=== PATIENT | female | born 1945 | race Caucasian/White ===

== ENCOUNTER 2016-06-14 15:45 | Emergency (ER) ==
[2016-06-14 17:25] LABS: MANUAL DIFF NEEDED? NO
--- NOTE | 2016-06-14 17:30 | ED EKG INTERP ---
EKG Interpretation - EKG Time of EKG reading by physician:: 16:19 EKG Read and Signed by:: Lance Cat EKG Interpretation (*Must complete 3 of following elements*): Normal Rate: 94 Rhythm: NSR Attestation - Scribe Verification/Attestation Scribe:: Maddison Lincoln Acting as Scribe for:: Lance Cat Scribe documention review:: This chart was documented by a scribe and accurately reflects the service the provider performed and the decisions made by the provider.
[2016-06-14 17:36] LABS: BASO% 0.3 % (0.0-0.8); EOS# 0.06 X1000 (0.0-0.7); EOS% 0.3 % (0.0-10.0); HEMATOCRIT 43.4 % (37.0-47.0); HEMOGLOBIN 14.2 g/dL (12.0-16.0); IMM GRAN# 0.12 X1000 (0.0-0.04); IMM GRAN% 0.7 % (0.0-0.5); LYMPH# 1.91 X1000 (1.2-3.4); LYMPH% 10.9 % (20.5-51.1); MCH 30.6 PG (27-31); MCHC 32.7 g/dL (33-37); MCV 93.5 FL (81-99); MONO# 0.69 X1000 (0.11-0.59); MONO% 3.9 % (1.7-9.3); MPV 11.3 FL (7.4-10.4); NEUT% 83.9 % (42.2-75.2); PLT 360 X1000 (130-400); RBC 4.64 XMIL (4.2-5.4)
[2016-06-14 17:44] LABS: INR 0.98; PTT 21.5 Seconds (22.0-36.0)
[2016-06-14 17:59] LABS: AGAP 22; ALBUMIN 4.3 g/dL (3.5-5.0); ALKALINE PHOSPHATASE 71 U/L (32-104); BUN 19 mg/dL (8-22); CALCIUM 10.2 mg/dL (8.8-10.2); CHLORIDE 97 mmol/L (98-107); CK PROFILE 171 U/L (24-173); COSMO 281; GOT 17 U/L (10-30); GPT 18 U/L (10-36); MAGNESIUM 1.9 mg/dL (1.5-2.7); POTASSIUM 2.9 mmol/L (3.5-5.1); SODIUM 140 mmol/L (136-145); TCO2 21 mmol/L (25-35); TOTAL BILIRUBIN 0.25 mg/dL (0.20-1.00); TOTAL PROTEIN 7.9 g/dL (6.3-8.3)
--- NOTE | 2016-06-14 18:09 | PROVIDER DOCUMENTATION ---
HPI-Respiratory General - General Chief Complaint: Shortness of Breath Stated Complaint: UPPER RESPIRATORY ISSUES/FLANK PAIN Time Seen by Provider: 06/14/16 18:04 Source: patient Allergies/Adverse Reactions: Patient Allergies Allergy/AdvReac Type Severity Reaction Status Date / Time clindamycin HCl * Allergy Intermediate HIVES Verified 06/14/16 20:26 [From Cleocin] clindamycin palmitate HCl * Allergy Intermediate HIVES Verified 06/14/16 20:26 [From Cleocin] clindamycin phosphate * Allergy Intermediate HIVES Verified 06/14/16 20:26 [From Cleocin] Penicillins Allergy Intermediate RASH Verified 06/14/16 20:26 esomeprazole magnesium * AdvReac Mild HEADACHE Verified 06/14/16 20:26 [From Nexium] Home Medications: Home Medication List Medication Instructions Recorded Confirmed Last Taken Type Aspirin [Aspirin EC] 325 mg PO DAILY 01/22/12 06/14/16 06/13/16 History Calcium Carbonate [Caltrate 600] 600 mg PO DAILY 01/22/12 06/14/16 06/13/16 History Duloxetine [Cymbalta] 60 mg PO QHS 01/22/12 06/14/16 06/13/16 History Losartan Potassium [Cozaar] 100 mg PO DAILY 01/22/12 06/14/16 06/13/16 History Verapamil HCl [Verapamil ER] 240 mg PO DAILY 01/22/12 06/14/16 06/13/16 History Multivitamin [Multi-Vitamin Daily] 1 each PO DAILY 11/18/12 06/14/16 06/13/16 History Montelukast [Singulair] 10 mg PO HS 12/19/12 06/14/16 06/13/16 History Alprazolam [Xanax] 0.5 mg PO BID PRN PRN #10 tablet 11/01/14 06/14/16 Unknown Rx Pregabalin [Lyrica] 150 mg PO QHS 05/20/15 06/14/16 06/13/16 History Ondansetron [Zofran Odt] 4 mg PO 4XDAY PRN PRN #20 05/21/15 06/14/16 Unknown Rx tab.rapdis Tramadol [Ultram] 50 mg PO Q6H PRN PRN #14 tablet 05/21/15 06/14/16 06/13/16 Rx Hydrocodone/Acetaminophen [[place] 1 each PO Q4-6H PRN PRN #20 tablet 10/09/1502/2006/13/16 Rx 7.5-325 Tablet] Ondansetron [Zofran Odt] 8 mg PO Q8H PRN #20 tab.rapdis 10/09/15 06/14/16 Unknown Rx Methylprednisolone [Medrol Dosepak] 4 mg PO DIRECTED #1 package 03/31/1602/2006/14/16 Rx Albuterol Sulfate [Proair Hfa] 8.5 gm IH 4XDAY 06/14/16 06/14/16 06/14/16 History Azithromycin [Zithromax Z-Adrian] 250 mg PO DIRECTED 06/14/16 06/14/16 06/13/16 History Levofloxacin [Levaquin] 750 mg PO DAILY #10 tablet 06/14/16 Unknown Rx Potassium Chloride E.r. [Klor-Con] 10 meq PO DAILY #5 tablet 06/14/16 Unknown Rx - History of Present Illness-Resp Nature of Presenting Problem: 70 y/o WF c/o SOB, cough, CP. States cough x 3 months. States SOB x 6 months, worse x 2 weeks. CP x 3-4 days, worse yesterday and started radiating to L axilla x 1 day. Pt states was seen by Dr. Becerra and given steroid dose pack and Zpack. States she has taken both, but still no relief. Reports hx of asthma. Denies any other sxs. Review of Systems - Adult - REVIEW OF SYSTEMS - ADULT Constitutional: reports: no symptoms reported. denies: chills, fever Eyes: reports: no symptoms reported. denies: blurred vision, double vision Ears, Nose, Mouth & Throat: reports: no symptoms reported. denies: ear pain, nose pain, throat pain Cardiovascular: reports: see HPI, chest pain. denies: palpitations Respiratory: reports: see HPI, cough, dyspnea on exertion, shortness of breath. denies: wheezing Gastrointestinal: reports: no symptoms reported. denies: abdominal pain, nausea , vomiting Genitourinary: reports: no symptoms reported. denies: dysuria, frequency Musculoskeletal: reports: no symptoms reported. denies: joint pain, joint swelling Integumentary: reports: no symptoms reported. denies: nail changes, rash Neurological: reports: no symptoms reported. denies: numbness, paresthesia Psychiatric: reports: no symptoms reported Endocrine: reports: no symptoms reported. denies: cold intolerance, heat intolerance Hematologic/Lymphatic: reports: no symptoms reported. denies: easy bruising, prolonged bleeding Allergic/Immunologic: reports: no symptoms reported All Other Systems: Reviewed and Negative Past History - Adult - PAST MEDICAL HISTORY-ADULT Review of Records: reports: Nursing Assessment Review, Medications Reviewed Major Childhood Illnesses: reports: denies history Cardiovascular: reports: HTN, hyperlipidemia Respiratory: reports: asthma, COPD, other (brochospasms) Gastrointestinal: reports: GERD Obstetrical/Gynecological: reports: denies history Genitourinary: reports: denies history Musculoskeletal: reports: arthritis, chronic pain, fibromyalgia, intervertebral disc disease Neurological: reports: denies history Psychiatric: reports: depression Endocrine/Immune: reports: denies history Other Conditions: reports: other (bronchospasms, fibromyalgia, IBS, cataract removal) - PRIOR SURGERIES/PROCEDURES Surgical/Procedure History: reports: appendectomy, hysterectomy, tonsillectomy, orthopedic (extremity) (R clavical), other (10 inches of small intestine) - IMMUNIZATION STATUS Childhood Immunizations: See Nurse Assessment Flu Vaccine: See Nurse Assessment - FAMILY HISTORY Family History: reviewed, not pertinent - SOCIAL HISTORY Smoking: denies Alcohol Use Frequency: never Physical Exam-General - PHYSICAL EXAM-ADULT Initial Vital Signs Reviewed: Yes - CONSTITUTIONAL General Appearance: alert, mild distress - EYES Eyes: pink conjunctivae - HEAD, EARS, NOSE, MOUTH & THROAT HENMT: normocephalic/atraumatic - RESPIRATORY Respiratory: lungs clear, normal breath sounds, pain on inspiration. negative: chest non-tender (L anterior and axillary ribs), crackles, rales, rhonchi, stridor, wheezing, increased rate - CARDIOVASCULAR Cardiovascular: regular rate, rhythm. negative: bradycardia, tachycardia - MUSCULOSKELETAL Back Exam: normal inspection Extremity: normal gait, no pedal edema, normal capillary refill. negative: abnormal NV exam - SKIN Integumentary: normal color, normal turgor, warm/dry - NEUROLOGIC Neurologic: negative: aphasia - PSYCHIATRIC Psych/Mental Status: normal mood/affect, normal thought content, normal thought process, oriented x 3 Progress - PLAN OF CARE/RESULTS Progress/Plan/Lab Results: Laboratory Tests 06/14/16 06/14/16 06/14/16 16:37 16:37 16:37 WBC 17.47 H RBC 4.64 Hgb 14.2 Hct 43.4 MCV 93.5 MCH 30.6 MCHC 32.7 L RDW Std Deviation 13.9 Plt Count 360 MPV 11.3 H Immature Gran % (Auto) 0.7 H Neut % (Auto) 83.9 H Lymph % (Auto) 10.9 L Weld % (Auto) 3.9 Eos % (Auto) 0.3 Baso % (Auto) 0.3 Immature Gran # (Auto) 0.12 H Neut # (Auto) 14.64 H Lymph # (Auto) 1.91 Weld # (Auto) 0.69 H Eos # (Auto) 0.06 Baso # (Auto) 0.05 PT INR PTT (Actin FS) D-Dimer 0.35 Sodium 140 Potassium 2.9 L Chloride 97 L Carbon Dioxide 21 L Anion Gap 22 BUN 19 Creatinine 0.9 Estimated GFR/1.73 m2 > 60 BUN/Creatinine Ratio 21 Glucose 95 Calculated Osmolality 281 Calcium 10.2 Magnesium 1.9 Total Bilirubin 0.25 AST 17 ALT 18 Alkaline Phosphatase 71 Creatine Kinase 171 Troponin T Hmd-W-Yahkxlkocgb Pept Total Protein 7.9 Albumin 4.3 Globulin 3.6 Albumin/Globulin Ratio 1.2 06/14/16 06/14/16 06/14/16 16:37 16:37 16:37 WBC RBC Hgb Hct MCV MCH MCHC RDW Std Deviation Plt Count MPV Immature Gran % (Auto) Neut % (Auto) Lymph % (Auto) Weld % (Auto) Eos % (Auto) Baso % (Auto) Immature Gran # (Auto) Neut # (Auto) Lymph # (Auto) Weld # (Auto) Eos # (Auto) Baso # (Auto) PT 10.0 INR 0.98 PTT (Actin FS) 21.5 L D-Dimer Sodium Potassium Chloride Carbon Dioxide Anion Gap BUN Creatinine Estimated GFR/1.73 m2 BUN/Creatinine Ratio Glucose Calculated Osmolality Calcium Magnesium Total Bilirubin AST ALT Alkaline Phosphatase Creatine Kinase Troponin T < 0.010 Hjp-K-Xyydwnzpfhv Pept 422 H Total Protein Albumin Globulin Albumin/Globulin Ratio 06/14/16 06/14/16 20:48 20:48 WBC RBC Hgb Hct MCV MCH MCHC RDW Std Deviation Plt Count MPV Immature Gran % (Auto) Neut % (Auto) Lymph % (Auto) Weld % (Auto) Eos % (Auto) Baso % (Auto) Immature Gran # (Auto) Neut # (Auto) Lymph # (Auto) Weld # (Auto) Eos # (Auto) Baso # (Auto) PT INR PTT (Actin FS) D-Dimer Sodium Potassium Chloride Carbon Dioxide Anion Gap BUN Creatinine Estimated GFR/1.73 m2 BUN/Creatinine Ratio Glucose Calculated Osmolality Calcium Magnesium Total Bilirubin AST ALT Alkaline Phosphatase Creatine Kinase 151 Troponin T < 0.010 Vec-Y-Igjbxaystjh Pept Total Protein Albumin Globulin Albumin/Globulin Ratio Orders Category Date Time Status CHEST-2 VIEWS [RAD] Stat Exams 06/14/16 16:17 Draft CBC WITH ELECTRONIC DIFF [HEME] Stat Lab 06/14/16 16:37 Completed CK PROFILE [SP CHEM] Stat Lab 06/14/16 16:37 Completed CK PROFILE [SP CHEM] Stat Lab 06/14/16 20:48 Completed COMPREHENSIVE METABOLIC PANEL [CHEM] Stat Lab 06/14/16 16:37 Completed D-DIMER [CHEM] Stat Lab 06/14/16 16:37 Completed MAGNESIUM [CHEM] Stat Lab 06/14/16 16:37 Completed PRO B-NATRIURETIC PEPTIDE Stat Lab 06/14/16 16:37 Completed PROTIME WITH INR [COAG] Stat Lab 06/14/16 16:37 Completed PTT [COAG] Stat Lab 06/14/16 16:37 Completed TROPONIN T Stat Lab 06/14/16 16:37 Completed TROPONIN T Stat Lab 06/14/16 20:48 Completed Albuterol 2.5MG/Ipratrop 0.5MG [Duoneb (A & A)] Med 06/14/16 21:21 Discontinued 9 ml INH NOW ONE CefTRIAXONE [Rocephin] Med 06/14/16 21:21 Discontinued 1 gm IM NOW ONE Hydrocodone/APAP 7.5 mg/325 mg [[place]-7.5] Med 06/14/16 21:21 Discontinued 1 each PO NOW ONE Lidocaine 1% Pf [Xylocaine-Mpf 1%] Med 06/14/16 21:21 Discontinued 5 ml INJ NOW ONE Ondansetron Odt [Zofran Odt] Med 06/14/16 21:21 Discontinued 4 mg PO NOW ONE Potassium Chloride E.r. [Klor-Con] Med 06/14/16 20:53 Discontinued 40 meq PO NOW ONE Aerosol Treatments Routine Oth 06/14/16 21:21 Completed Aerosol Treatments Stat Oth 06/14/16 21:21 Completed EKG [EKG] Stat Ther 06/14/16 16:17 Ordered EKG [EKG] Stat Ther 06/14/16 20:23 Ordered Vital Signs Temp Pulse Resp BP Pulse Ox 06/14/16 22:36 98.1 F 114 H 26 H 141/73 95 06/14/16 21:34 80 15 06/14/16 21:31 92 H 11 L 177/94 98 06/14/16 16:15 97.7 F 98 H 20 150/71 98 clindamycin HCl * [From Cleocin] Allergy (Intermediate, Verified 06/14/16 20:26) HIVES clindamycin palmitate HCl * [From Cleocin] Allergy (Intermediate, Verified 06/14 20:26) HIVES clindamycin phosphate * [From Cleocin] Allergy (Intermediate, Verified 06/14/16 20:26) HIVES Penicillins Allergy (Intermediate, Verified 06/14/16 20:26) RASH esomeprazole magnesium * [From Nexium] Adverse Reaction (Mild, Verified 20:26) HEADACHE nausea, vomiting, diarrhea Aspirin [Aspirin EC] 325 mg PO DAILY 01/22/12 Calcium Carbonate [Caltrate 600] 600 mg PO DAILY 01/22/12 Duloxetine [Cymbalta] 60 mg PO QHS 01/22/12 Losartan Potassium [Cozaar] 100 mg PO DAILY 01/22/12 Verapamil HCl [Verapamil ER] 240 mg PO DAILY 01/22/12 Multivitamin [Multi-Vitamin Daily] 1 each PO DAILY 11/18/12 Montelukast [Singulair] 10 mg PO HS 12/19/12 Alprazolam [Xanax] 0.5 mg PO BID PRN PRN #10 tablet 11/01/14 Pregabalin [Lyrica] 150 mg PO QHS 05/20/15 Ondansetron [Zofran Odt] 4 mg PO 4XDAY PRN PRN #20 tab.rapdis 05/21/15 Tramadol [Ultram] 50 mg PO Q6H PRN PRN #14 tablet 05/21/15 Hydrocodone/Acetaminophen [[place] 7.5-325 Tablet] 1 each PO Q4-6H PRN PRN #20 tablet 10/09/15 Ondansetron [Zofran Odt] 8 mg PO Q8H PRN #20 tab.rapdis 10/09/15 Methylprednisolone [Medrol Dosepak] 4 mg PO DIRECTED #1 package 03/31/16 Albuterol Sulfate [Proair Hfa] 8.5 gm IH 4XDAY 06/14/16 Azithromycin [Zithromax Z-Adrian] 250 mg PO DIRECTED 06/14/16 Levofloxacin [Levaquin] 750 mg PO DAILY #10 tablet 06/14/16 Potassium Chloride E.r. [Klor-Con] 10 meq PO DAILY #5 tablet 06/14/16 Laboratory 06/14/16 06/14/16 06/14/16 20:48 20:48 16:37 WBC RBC Hgb Hct MCV MCH MCHC RDW Std Deviation Plt Count MPV Immature Gran % (Auto) Neut % (Auto) Lymph % (Auto) Weld % (Auto) Eos % (Auto) Baso % (Auto) Immature Gran # (Auto) Neut # (Auto) Lymph # (Auto) Weld # (Auto) Eos # (Auto) Baso # (Auto) PT INR PTT (Actin FS) D-Dimer Sodium Potassium Chloride Carbon Dioxide Anion Gap BUN Creatinine Estimated GFR/1.73 m2 BUN/Creatinine Ratio Glucose Calculated Osmolality Calcium Magnesium Total Bilirubin AST ALT Alkaline Phosphatase Creatine Kinase 151 Troponin T < 0.010 < 0.010 Vsk-X-Atkkfyyzxhp Pept Total Protein Albumin Globulin Albumin/Globulin Ratio 06/14/16 06/14/16 06/14/16 16:37 16:37 16:37 WBC RBC Hgb Hct MCV MCH MCHC RDW Std Deviation Plt Count MPV Immature Gran % (Auto) Neut % (Auto) Lymph % (Auto) Weld % (Auto) Eos % (Auto) Baso % (Auto) Immature Gran # (Auto) Neut # (Auto) Lymph # (Auto) Weld # (Auto) Eos # (Auto) Baso # (Auto) PT 10.0 INR 0.98 PTT (Actin FS) 21.5 L D-Dimer 0.35 Sodium Potassium Chloride Carbon Dioxide Anion Gap BUN Creatinine Estimated GFR/1.73 m2 BUN/Creatinine Ratio Glucose Calculated Osmolality Calcium Magnesium Total Bilirubin AST ALT Alkaline Phosphatase Creatine Kinase Troponin T Het-D-Bczkrlvyklz Pept 422 H Total Protein Albumin Globulin Albumin/Globulin Ratio 06/14/16 06/14/16 16:37 16:37 WBC 17.47 H RBC 4.64 Hgb 14.2 Hct 43.4 MCV 93.5 MCH 30.6 MCHC 32.7 L RDW Std Deviation 13.9 Plt Count 360 MPV 11.3 H Immature Gran % (Auto) 0.7 H Neut % (Auto) 83.9 H Lymph % (Auto) 10.9 L Weld % (Auto) 3.9 Eos % (Auto) 0.3 Baso % (Auto) 0.3 Immature Gran # (Auto) 0.12 H Neut # (Auto) 14.64 H Lymph # (Auto) 1.91 Weld # (Auto) 0.69 H Eos # (Auto) 0.06 Baso # (Auto) 0.05 PT INR PTT (Actin FS) D-Dimer Sodium 140 Potassium 2.9 L Chloride 97 L Carbon Dioxide 21 L Anion Gap 22 BUN 19 Creatinine 0.9 Estimated GFR/1.73 m2 > 60 BUN/Creatinine Ratio 21 Glucose 95 Calculated Osmolality 281 Calcium 10.2 Magnesium 1.9 Total Bilirubin 0.25 AST 17 ALT 18 Alkaline Phosphatase 71 Creatine Kinase 171 Troponin T Jry-S-Jzoigsulybi Pept Total Protein 7.9 Albumin 4.3 Globulin 3.6 Albumin/Globulin Ratio 1.[address] Michel; he agreed with tx and d/c after reviewing labwork and Xrays. Discussed medication use and f/u with pt. - XRAY 1 XRAY Study: Chest Impression: See EMR Report (1. Possible mild bronchitis. 2. No evidence of pneumonia. -per Dr. Daniels) Departure - Departure Time of Disposition Order: 21:24 DIAGNOSIS: Bronchitis, Hypokalemia Leukocytosis Qualifiers: Leukocytosis type: unspecified Qualified Code(s): D72.829 - Elevated white blood cell count, unspecified Disposition: HOME 01 Certified Medical Emergency: Emergent Condition: Stable Additional Instructions: Take medications as directed. Continue taking medrol dose pack. Follow up with PCP in 3 days for recheck. ED Follow Up Instructions: You have been treated by a care provider in the Emergency Department. These instructions are being provided to you so you can have an understanding of how to care for yourself upon discharge. Upon discharge from the Emergency Department, you are responsible for making arrangements for follow-up care by a physician of your choice. Take all prescribed medications as directed. Return to the Emergency Department immediately for any new or worsening symptoms. You may call the Physician Referral phone number at [phone] to obtain a list of Physicians who are taking new patients. Prescriptions: Potassium Chloride E.r. [Klor-Con] 10 meq PO DAILY #5 tablet Levofloxacin [Levaquin] 750 mg PO DAILY #10 tablet Referrals: Agustin Becerra MD [Primary Care Provider] - Instructions: Hypokalemia Attestation - Physician/ LUIS ANTONIO Attestation Patient care was provided by Advanced Practice Provider:: Yes Advanced Practice Provider:: Sunshine Blanchard Advanced Practice Provider documentation review:: The Mid-level provider documentation, treatment plan and medical decision making was reviewed by the physician who agrees with all treatment and medical decision making by the MLP.
--- NOTE | 2016-06-14 18:39 | Diag Imaging Result Document ---
PROCEDURE NAME: CHEST-2 VIEWS - 06/14/2016 CHEST, 2 VIEWS: FINDINGS: Compared to 03/31/2016. Heart size appears within normal limits. There is mild prominence of infrahilar markings, most conspicuous on the lateral view. These may relate to crowding from mildly shallow inspiration on the lateral view and/or mild bronchitis. There is no dense consolidation, pleural effusion, or pneumothorax identified. There is exaggerated lower thoracic kyphosis noted similar to the previous exam. IMPRESSION: 1. Possible mild bronchitis. 2. No evidence of pneumonia.
--- NOTE | 2016-06-14 20:38 | ED EKG INTERP ---
EKG Interpretation - EKG Time of EKG reading by physician:: 20:35 EKG Read and Signed by:: Osito Michel EKG Interpretation (*Must complete 3 of following elements*): Abnormal ( Possible L atrial enlargement; LVH) Rate: 99 Rhythm: NSR Attestation - Scribe Verification/Attestation Scribe:: Dann Coleman Acting as Scribe for:: Osito Michel Scribe documention review:: This chart was documented by a scribe and accurately reflects the service the provider performed and the decisions made by the provider.
[2016-06-14] MEDS ORDERED: KLOR-CON PO ONE (20:53)
[2016-06-14] MEDS ORDERED: ROCEPHIN IM ONE (21:21)
[2016-06-14] MEDS ORDERED: NORCO-7.5 PO ONE (21:21)
[2016-06-14] MEDS ORDERED: XYLOCAINE-MPF 1% INJ ONE (21:21)
[2016-06-14] MEDS ORDERED: ZOFRAN ODT PO ONE (21:21)
[2016-06-14] MEDS ORDERED: DUONEB (A & A) INH ONE (21:21)
[2016-06-14 22:37] VITALS: BP 141/73
--- NOTE | 2016-06-16 09:53 | EKG Report ---
Test Performed on : 06/14/2016 8:35:34 PM Test Reason : SOB Blood Pressure : / mmHG Vent. Rate : 099 BPM Atrial Rate : 099 BPM P-R Int : 136 ms QRS Dur : 078 ms QT Int : 340 ms P-R-T Axes : 036 007 055 degrees QTc Int : 436 ms Normal sinus rhythm. Possible Left atrial enlargement Left ventricular hypertrophy Abnormal ECG When compared with ECG of 14-JUN-2016 16:19, (Unconfirmed) No significant change was found Unconfirmed Result
--- NOTE | 2016-06-16 10:03 | EKG Report ---
Test Performed on : 06/14/2016 4:19:44 PM Test Reason : sob Blood Pressure : / mmHG Vent. Rate : 094 BPM Atrial Rate : 094 BPM P-R Int : 142 ms QRS Dur : 082 ms QT Int : 340 ms P-R-T Axes : 052 015 063 degrees QTc Int : 425 ms Normal sinus rhythm. Normal ECG When compared with ECG of 20-MAY-2015 17:54, No significant change was found Unconfirmed Result
== END 2016-06-14 22:41 | disposition home or self-care (01) ==
LOC: ED 15:45
DX: J40 Bronchitis, not specified as acute or chronic (principal); E87.6 Hypokalemia; D72.829 Elevated white blood cell count, unspecified; R06.02 Shortness of breath; R05 Cough; R06.09 Other forms of dyspnea; R07.9 Chest pain, unspecified; I10 Essential (primary) hypertension; Z79.899 Other long term (current) drug therapy; E78.5 Hyperlipidemia, unspecified; J44.9 Chronic obstructive pulmonary disease, unspecified; K21.9 Gastro-esophageal reflux disease without esophagitis; M19.90 Unspecified osteoarthritis, unspecified site; M79.7 Fibromyalgia; G89.29 Other chronic pain; F32.9 Major depressive disorder, single episode, unspecified; R94.31 Abnormal electrocardiogram [ECG] [EKG]; Z79.51 Long term (current) use of inhaled steroids; Z79.82 Long term (current) use of aspirin
CPT/HCPCS: 71020; 80053; 82550; 83735; 83880; 84484; 85025; 85379; 85610; 85730; 93005; 94640; J0696

== ENCOUNTER 2018-12-02 14:50 | Inpatient (IN) ==
[2018-12-02] MEDS ORDERED: MORPHINE IV ONE (15:41)
[2018-12-02] MEDS ORDERED: ZOFRAN IV ONE (15:41)
[2018-12-02] MEDS ORDERED: NS 500 ML IV ONE (15:41)
--- NOTE | 2018-12-02 15:48 | PROVIDER DOCUMENTATION ---
HPI-Abdominal Pain/GI Problem - General Chief Complaint: General Adult Stated Complaint: BODY ACHE Time Seen by Provider: 12/02/18 15:25 Source: patient Allergies/Adverse Reactions: Patient Allergies Allergy/AdvReac Type Severity Reaction Status Date / Time clindamycin HCl * Allergy Intermediate HIVES Verified 12/02/18 15:12 [From Cleocin] clindamycin palmitate HCl * Allergy Intermediate HIVES Verified 12/02/18 15:12 [From Cleocin] clindamycin phosphate * Allergy Intermediate HIVES Verified 12/02/18 15:12 [From Cleocin] Penicillins Allergy Intermediate RASH Verified 12/02/18 15:12 azithromycin [From Zithromax] Allergy HIVES Verified 12/02/18 15:12 ceftriaxone [From Rocephin] Allergy RASH Verified 12/02/18 15:12 esomeprazole magnesium * AdvReac Mild HEADACHE Verified 12/02/18 15:12 [From Nexium] Home Medications: Home Medication List Medication Instructions Recorded Confirmed Last Taken Type Aspirin [Aspirin EC] 325 mg PO DAILY 01/22/12 12/02/18 12/01/18 History Calcium Carbonate [Caltrate 600] 600 mg PO BID 01/22/12 12/02/18 12/01/18 History Losartan Potassium [Cozaar] 100 mg PO DAILY 01/22/12 12/02/18 12/01/18 History Verapamil HCl [Verapamil ER] 240 mg PO DAILY 01/22/12 12/02/18 12/01/18 History Montelukast [Singulair] 10 mg PO HS 12/19/12 12/02/18 12/01/18 History Pregabalin [Lyrica] 150 mg PO QHS 05/20/15 12/02/18 12/01/18 History Ondansetron [Zofran Odt] 8 mg PO Q8H PRN #20 tab.rapdis 10/09/15 12/02/18 Unknown Rx Albuterol Sulfate [Proair Hfa] 8.5 gm IH 4XDAY 06/14/16 12/02/18 06/14/16 History Budesonide/Formoterol Inhaler 2 puff INH BID #1 inhaler 02/23/17 12/02/18 12/01/18 Rx [Symbicort 80/4.5 Microgm Inhaler] Multivit,Fe,Ca,FA & Min [Thera M 1 each PO DAILY tablet 02/23/17 12/02/18 12/01/18 Rx Plus] Cholecalciferol (Vit D3) [Vitamin 3,000 unit PO DAILY 07/18/17 12/02/18 12/01/18 History D3] Omeprazole [Prilosec] 20 mg PO DAILY 07/18/17 12/02/18 12/01/18 History Pravastatin Sodium 40 mg PO QHS 12/02/18 12/02/18 12/01/18 History - History of Present Illness-ABD Nature of Presenting Problems: Patient is a 73 yowf who complains of LLQ abdominal pain, nausea, chills, body aches, generalized weakness, and diarrhea x 3 days. Vomited once last night. Denies fever or any other symptoms. She is non-toxic in appearance. Review of Systems - Adult - REVIEW OF SYSTEMS - ADULT Constitutional: reports: see HPI Eyes: reports: no symptoms reported Ears, Nose, Mouth & Throat: reports: no symptoms reported Cardiovascular: reports: no symptoms reported Respiratory: reports: no symptoms reported Gastrointestinal: reports: see HPI Genitourinary: reports: no symptoms reported Musculoskeletal: reports: no symptoms reported Integumentary: reports: no symptoms reported Neurological: reports: no symptoms reported Psychiatric: reports: no symptoms reported Endocrine: reports: no symptoms reported Hematologic/Lymphatic: reports: no symptoms reported Allergic/Immunologic: reports: no symptoms reported All Other Systems: Reviewed and Negative Past History - Adult - PAST MEDICAL HISTORY-ADULT Review of Records: reports: Old Records Reviewed, Nursing Assessment Review, Medications Reviewed, Social history reviewed & non-contributory. Major Childhood Illnesses: reports: denies history Cardiovascular: reports: HTN, hyperlipidemia Respiratory: reports: asthma, COPD, other (brochospasms; emphysema) Gastrointestinal: reports: GERD, IBS Obstetrical/Gynecological: reports: denies history, endometriosis Genitourinary: reports: denies history Musculoskeletal: reports: arthritis, chronic pain, fibromyalgia, intervertebral disc disease Neurological: reports: denies history, other (spinal stenosis; bulging disc) Psychiatric: reports: depression Endocrine/Immune: reports: denies history Other Conditions: reports: cataract/glaucoma, other (lactose intolerant) - PRIOR SURGERIES/PROCEDURES Surgical/Procedure History: reports: appendectomy, hysterectomy, tonsillectomy, orthopedic (extremity) (R clavical), other (10 inches of small intestine; cataract removal; endometriosis) - IMMUNIZATION STATUS Childhood Immunizations: See Nurse Assessment Flu Vaccine: See Nurse Assessment - FAMILY HISTORY Family History: reviewed, not pertinent - SOCIAL HISTORY Smoking: non-smoker Physical Exam-General - PHYSICAL EXAM-ADULT Initial Vital Signs Reviewed: Yes - CONSTITUTIONAL General Appearance: alert, mild distress. negative: lethargic, slow to respond - EYES Eyes: PERRL/EOMI, pink conjunctivae - HEAD, EARS, NOSE, MOUTH & THROAT HENMT: normocephalic/atraumatic, moist mucous membranes - NECK Neck: full range of motion, supple, normal inspection - RESPIRATORY Respiratory: chest non-tender, lungs clear, normal breath sounds, no pleuratic chest pain, no respiratory distress, no accessory muscle use - CARDIOVASCULAR Cardiovascular: normal peripheral pulses, regular rate, rhythm, no edema, no gallop, no murmur - GASTROINTESTINAL (ABDOMEN) Abdominal Exam: normal bowel sounds, soft, no organomegaly, no pulsatile mass, tenderness (all across lower abdomen, more in LLQ). negative: distended, guarding, rigid, rebound, hernia, mass - MUSCULOSKELETAL Back Exam: normal inspection, no CVA tenderness Extremity: normal range of motion, non-tender, normal inspection - SKIN Integumentary: normal color, warm/dry. negative: cyanosis, diaphoresis, jaundice, mottled, pallor - NEUROLOGIC Neurologic: grossly normal, no motor/sensory deficits - PSYCHIATRIC Psych/Mental Status: normal mood/affect, normal thought content, normal thought process, oriented x 3 Progress - PLAN OF CARE/RESULTS Progress/Plan/Lab Results: Vital Signs - 8 hr 12/02/18 14:59 Temperature 97.9 F Pulse Rate 88 Respiratory Rate 18 Blood Pressure 126/83 O2 Sat by Pulse Oximetry 97 Orders Category Date Time Status Cardiac Monitoring DIRECTED Care 12/02/18 15:41 Active Nursing- Obtain EKG ONCE Care 12/02/18 15:41 Active CHEST-2 VIEWS [RAD] Stat Exams 12/02/18 15:42 Ordered AMYLASE [CHEM] Stat Lab 12/02/18 15:44 Ordered CBC WITH DIFF [HEME] Stat Lab 12/02/18 15:41 Ordered COMPREHENSIVE METABOLIC PANEL [CHEM] Stat Lab 12/02/18 15:44 Ordered LIPASE [CHEM] Stat Lab 12/02/18 15:44 Ordered MAGNESIUM [CHEM] Stat Lab 12/02/18 15:43 Ordered TROPONIN T Stat Lab 12/02/18 15:43 Ordered UA NIMS W/REFLEX CULT [URINALYSIS] Stat Lab 12/02/18 15:41 Uncollected 0.9% Sodium Chloride Inj [Ns] 500 ml Med 12/02/18 15:41 Active IV 999 mls/hr Morphine Med 12/02/18 15:41 Discontinued 2 mg IV NOW ONE Ondansetron [Zofran] Med 12/02/18 15:41 Discontinued 4 mg IV NOW ONE EKG [EKG] Stat Ther 12/02/18 15:41 Ordered Result Diagrams: 12/02/18 15:25 12/02/18 15:25 - REASSESSMENT Reassessment #1 Time Reassessed: 18:22 Status: other (Pain improved with meds. Pt is in agreement with admission plan.) - EKG 1 Time of EKG reading by physician:: 16:46 EKG Read and Signed by:: Carson Russell EKG Interpretation (*Must complete 3 of following elements*): Normal Rate: 81 Rhythm: NSR QRS: normal ST Wave: normal - XRAY 1 XRAY Study: Chest ([facility] - [address] [place] [address] [place], [place] [id number] [facility] - [address] [place] [address] Department of Imaging Patient: JOSI HARTMAN Date: 12/02/18#: [id number] : 1945DM Status: PRE ERAcct#: [id number] Age/Sex: 73/FRoom/Bed: Loc: ED Ordering Physician: Esteban Howard Family Physician: Agustin Becerra MD Reason for Procedure: weakness, vomiting Signed EXAM: CHEST-2 VIEWS HISTORY: weakness, vomiting TECHNIQUE: Chest two views COMPARISON: 09/07/2018 FINDINGS: The lungs are well expanded. The heart is not enlarged. The vessels are not distended. There are no infiltrates. No pleural effusions. Prior right clavicle surgery. Moderate scoliosis with degenerative spine changes. IMPRESSION: No acute abnormality. Electronically signed by Brien Chamberlain 12/02/2018 3:59 PM 12/02/18 155 Interpreting Physician: Brien Chamberlain MD Dictated Date/Time: 12/02/18 1553 cc: Esteban Howard; Agustin Becerra MD) - CONSULTS/PCP/HOSPITALIST Notification #1 *Consult/PCP/Hospitalist*: Dr. Jensen Time Discussed: 18:22 Reason/Comments: admission- abdominal pain- diverticulitis vs. colitis Consult Disposition: Will see in ED, Admit Departure - Departure Date of Disposition Decision: 12/02/18 Time of Disposition Decision: 18:21 DIAGNOSIS: Hypokalemia, Diverticulitis, Colitis Abdominal pain Qualifiers: Abdominal location: lower abdomen, unspecified Qualified Code(s): R10.30 - Lower abdominal pain, unspecified Disposition: ADMITTED INPATIENT 09 Certified Medical Emergency: Emergent Condition: Stable Referrals and Follow-Ups: Agustin Becerra MD [Primary Care Provider] - - Critical Care Note This patient required my direct & personal management of CC.: No Attestation - Physician/ LUIS ANTONIO Attestation Patient care was provided by Advanced Practice Provider:: Yes Advanced Practice Provider:: Esteban Howard Advanced Practice Provider documentation review:: The Mid-level provider documentation, treatment plan and medical decision making was reviewed by the physician who agrees with all treatment and medical decision making by the P. The physician spent face to face time with patient:: No Advanced Practice Provider documentation review:: Supervising physician onsite and consulted in the evaluation and care of this patient. The physician did not have a face to face encounter with the patient.
[2018-12-02 15:57] LABS: BASO# 0.01 X1000 (0.0-0.2); BASO% 0.1 % (0.0-0.8); EOS% 1.8 % (0.0-10.0); HEMATOCRIT 42.6 % (37.0-47.0); IMM GRAN# 0.02 X1000 (0.0-0.04); IMM GRAN% 0.2 % (0.0-0.5); LYMPH% 13.6 % (20.5-51.1); MCH 30.2 PG (27-31); MCHC 32.9 g/dL (33-37); MCV 91.8 FL (81-99); MONO# 0.54 X1000 (0.11-0.59); MONO% 4.9 % (1.7-9.3); MPV 12.1 FL (7.4-10.4); NEUT# 8.78 X1000 (1.4-6.5); NEUT% 79.4 % (42.2-75.2); PLT 232 X1000 (130-400); RBC 4.64 XMIL (4.2-5.4); RDW 12.5 % (11.5-14.5); WBC 11.05 X1000 (4.8-10.8)
--- NOTE | 2018-12-02 16:01 | Diag Imaging Result Doc PS360 ---
EXAM: CHEST-2 VIEWS HISTORY: weakness, vomiting TECHNIQUE: Chest two views COMPARISON: 09/07/2018 FINDINGS: The lungs are well expanded. The heart is not enlarged. The vessels are not distended. There are no infiltrates. No pleural effusions. Prior right clavicle surgery. Moderate scoliosis with degenerative spine changes. IMPRESSION: No acute abnormality. Electronically signed by Brien Chamberlain 12/02/2018 3:59 PM
[2018-12-02 16:02] LABS: URINE SOURCE CLEAN CATCH
[2018-12-02 16:05] LABS: UR EPITHELIAL CELLS <10 /HPF (<10); URINE BACTERIA NEGATIVE /HPF; URINE RBC <10 /HPF (<10); URINE WBC <10 /HPF (<10)
[2018-12-02 16:06] LABS: BILIRUBIN URINE NEGATIVE (NEGATIVE); BLOOD URINE NEGATIVE (NEGATIVE); COLOR YELLOW; GLUCOSE URINE NEGATIVE (NEGATIVE); KETONE URINE TRACE mg/dL (NEGATIVE); LEUKOCYTES URINE NEGATIVE (NEGATIVE); NITRITE URINE NEGATIVE (NEGATIVE); PROTEIN URINE NEGATIVE (NEGATIVE); SP GRAVITY URINE 1.013; TURBIDITY URINE CLEAR (CLEAR); UROBILINOGEN URINE NORMAL (NORMAL)
[2018-12-02 16:33] LABS: AGAP 14; ALB/GLOB RATIO 1.3; ALBUMIN 4.3 g/dL (3.5-5.0); ALKALINE PHOSPHATASE 75 U/L (32-104); AMYLASE 62 U/L (20-200); BUN 14 mg/dL (8-22); CALCIUM 9.5 mg/dL (8.8-10.2); CHLORIDE 102 mmol/L (98-107); COSMO 280; CREATININE 0.6 mg/dL (0.5-0.9); ESTIMATED GFR > 60; GLUCOSE 103 mg/dL (70-104); GOT 19 U/L (10-30); GPT 16 U/L (10-36); LIPASE 32 U/L (13-60); POTASSIUM 3.2 mmol/L (3.5-5.1); SODIUM 140 mmol/L (136-145); TCO2 24 mmol/L (25-35); TOTAL BILIRUBIN 0.48 mg/dL (0.20-1.00); TOTAL PROTEIN 7.5 g/dL (6.3-8.3)
--- NOTE | 2018-12-02 16:51 | EKG Report ---
Test Performed on : 12/02/2018 4:44:23 PM Test Reason : vomiting Blood Pressure : / mmHG Vent. Rate : 081 BPM Atrial Rate : 081 BPM P-R Int : 150 ms QRS Dur : 080 ms QT Int : 364 ms P-R-T Axes : 045 005 053 degrees QTc Int : 422 ms Normal sinus rhythm. Normal ECG When compared with ECG of 18-JUL-2017 19:34, No significant change was found Unconfirmed Result
--- NOTE | 2018-12-02 18:05 | Diag Imaging Result Doc PS360 ---
CT ABD/PELVIS W/IV CONT ONLY - 12/02/2018 INDICATION: LLQ pain, diarrhea, vomiting COMPARISON: 10/27/2013 FINDINGS: There is some mild peripheral scarring in the lung bases. No infiltrates. Heart size is normal. There is a small hiatal hernia similar to prior. There is focal wall thickening and inflammation at the transverse colon surrounding a diverticulum. There is diverticulosis throughout the entire colon. No drainable fluid collection. No free air. No bowel obstruction. Stable prominent gastrohepatic ligament lymph nodes. Uterus is absent. Urinary bladder and rectum are normal. Severe degeneration throughout the spine. No acute bony lesions. IMPRESSION: 1. Focal colitis or diverticulitis at the transverse colon. Recommend a follow-up abdomen pelvis CT with contrast or colonoscopy a couple of weeks after the patient has resolved. 2. Other incidental findings described above. This exam was performed using automated exposure control, adjustment of mA or kV according to patient size, and/or use of iterative reconstruction technique Electronically signed by Reymundo Adamson 12/02/2018 6:02 PM
[2018-12-02] MEDS ORDERED: LEVAQUIN 750 MG/D5W 750 MG/150 ML IVPB IV ONE ×2 (18:08→18:15)
[2018-12-02] MEDS ORDERED: FLAGYL 500 MG/NS 500 MG/100 ML IVPB IV ONE (18:15)
[2018-12-02] MEDS ORDERED: ZOFRAN IV PRN (18:33)
[2018-12-02] MEDS ORDERED: LOVENOX SUBQ SCH (18:45)
[2018-12-02] MEDS ORDERED: MORPHINE IV PRN (19:37)
[2018-12-02] MEDS: NS 1,000 ML IV SCH (19:42)
--- NOTE | 2018-12-02 20:56 | HISTORY AND PHYSICAL ---
PRIMARY CARE PHYSICIAN: Dr. Agustin Becerra. PRESENTING COMPLAINT: Abdominal pain, chills. HISTORY OF PRESENTING COMPLAINT: Ms. Ashton is a 73-year-old, female, with a history of persistent asthma - on medications, osteoarthritis, diverticulosis, constipation, and irritable bowel syndrome. She came to the emergency department because of abdominal pain which has been going on for the past 3 days. According to Ms. Ashton, it all started because she was remarkably constipated, has not been able to move her bowel for the past 4 days. So, she took some fibers, and since today, she has been running diarrhea, but before then, she was having this intermittent generalized abdominal pain, more so to the left lower quadrant, which was associated with some nauseation. This morning, she had 2 episodes of vomiting as well. Ms. Ashton refers that for the past 3 days, she has also been having some chills and feeling extremely cold. She came to the emergency department where she was evaluated, and was found to have normal vitals, but her white cell count is slightly elevated, and her CT scan report seems to suggest some focal colitis or diverticulitis at the transverse colon. The patient is therefore being admitted for colitis/diverticulitis with oral intolerance. PAST MEDICAL HISTORY: 1. Osteoarthritis. 2. Asthma. 3. Hypertension. 4. Diverticulosis. 5. Fibromyalgia. 6. Irritable bowel syndrome. PAST SURGICAL HISTORY: 1. Hysterectomy. 2. Appendectomy. 3. Right shoulder, right clavicle bone surgery. 4. Exploratory laparotomy for peritonitis. FAMILY HISTORY: Unremarkable. ALLERGIES: Clindamycin. SOCIAL HISTORY: Ms. Ashton is currently and lives with her . Denies any smoking or alcohol use. No recreational drug use. REVIEW OF SYSTEMS: A 14-point review of systems conducted with Ms. Ashton is unremarkable, except what we have in the HPI. Specifically, Ms. Ashton denies any shortness of breath or any chest pain. No wheezing. PHYSICAL EXAMINATION: CURRENT VITALS: Blood pressure is 126/83, pulse of 88, respiration is 18, temperature is 97.9 degrees. The patient is saturating 97% on room air. GENERAL: Ms. Ashton is a 73-year-old, female. She is in bed. She looks well nourished. Mucosa is pink and moist. Anicteric. Acyanotic. NECK: Supple. No JVD. No carotid bruit. Trachea is midline. There is no thyromegaly. HEAD: Normocephalic and atraumatic. RESPIRATORY SYSTEM: There is good air entry bilaterally. No crepitations. No rhonchi. No accessory muscle use. CARDIOVASCULAR: Regular rate and rhythm. No murmurs, no rubs, no gallops. GASTROINTESTINAL: Abdomen is soft, minimally tender in the lower abdomen, but there is no guarding, no rebound. There is an old midline surgical scar from previous exploratory laparotomy. EXTREMITIES: No pedal edema. Distal pulses are present. Inguinal region is unremarkable. CENTRAL NERVOUS SYSTEM: Patient is awake, alert, oriented. Executive functions are intact. Cranial nerves 2-12 have been grossly examined, unremarkable. The patient has 5/5 power in all extremities. Sensation is intact. PSYCHIATRIC: The patient is very cooperative, has good insight and judgment. LABORATORY DATA: WBC is 11.05, rest of CBC is within normal parameters. Chemistry is also reviewed, potassium is 3.2, rest of chemistry is within normal parameters. IMAGING STUDIES: A chest x-ray on presentation shows no acute abnormality. A CT scan of the abdomen and pelvis shows a focal colitis or diverticulitis at the transverse colon. ASSESSMENT/PLAN: Ms. Ashton with a history of chronic constipation and irritable bowel syndrome. Normally follows up with Dr. Dick. Does not remember the last time she had colonoscopy. She comes to the emergency department because of abdominal pain. CT scan shows focal colitis versus diverticulitis, and patient is p.o. intolerant. 1. Focal colitis versus diverticulitis of the transverse colon. The patient is currently on antimicrobial therapy. We are going to continue this. The patient will also be adequately hydrated overnight. We will check her inflammatory panel as well and will also get her GI doctor to evaluate her while she is in the hospital. 2. History of fibromyalgia. Noted. 3. Hypertension. Currently controlled. 4. Hypokalemia. We will replace this. 5. Mild clinical volume depletion. We will gently hydrate her overnight. 6. History of irritable bowel syndrome. I will also control all of her other chronic comorbidities. So today, we are going to admit Ms. Ashton to the medical floor. We are going to gently hydrate her overnight. She has been started on Levaquin and metronidazole. She is currently p.o. intolerant, so will keep her NPO, re-evaluate her in the morning. Dr. Dick has been consulted for tomorrow. We will re-evaluate her in the morning and then go from there. cc: Joel Jensen MD
[2018-12-02] MEDS ORDERED: LYRICA PO SCH (21:00)
[2018-12-02] MEDS ORDERED: SINGULAIR PO SCH (21:00)
[2018-12-02] MEDS ORDERED: PRAVACHOL PO SCH (21:00)
[2018-12-02] MEDS: SYMBICORT 80/4.5 MICROGM INHALER INH SCH (23:53)
[2018-12-02] MEDS: VENTOLIN HFA INH SCH (23:53)
[2018-12-03] MEDS ORDERED: PHENERGAN IV PRN (00:43)
[2018-12-03] MEDS ORDERED: SODIUM CHLORIDE 0.9% INJ PRN (00:43)
[2018-12-03] MEDS: VENTOLIN HFA INH SCH ×2 (03:42→08:31)
[2018-12-03] MEDS: FLAGYL 250 MG/NS 250 MG/50 ML IVPB IV SCH ×2 (04:47→09:45)
[2018-12-03] MEDS: NS 1,000 ML IV SCH ×2 (04:47→09:40)
[2018-12-03 06:46] LABS: BASO# 0.01 X1000 (0.0-0.2); BASO% 0.1 % (0.0-0.8); EOS# 0.08 X1000 (0.0-0.7); EOS% 1.1 % (0.0-10.0); HEMATOCRIT 38.1 % (37.0-47.0); HEMOGLOBIN 12.2 g/dL (12.0-16.0); LYMPH# 1.43 X1000 (1.2-3.4); LYMPH% 20.4 % (20.5-51.1); MCV 93.6 FL (81-99); MONO# 0.32 X1000 (0.11-0.59); MONO% 4.6 % (1.7-9.3); MPV 11.6 FL (7.4-10.4); NEUT# 5.18 X1000 (1.4-6.5); NEUT% 73.8 % (42.2-75.2); PLT 212 X1000 (130-400); RBC 4.07 XMIL (4.2-5.4); RDW 12.4 % (11.5-14.5); WBC 7.02 X1000 (4.8-10.8)
[2018-12-03 07:14] LABS: AGAP 11; ALB/GLOB RATIO 1.3; ALBUMIN 3.4 g/dL (3.5-5.0); ALKALINE PHOSPHATASE 61 U/L (32-104); BUN 11 mg/dL (8-22); CALCIUM 8.8 mg/dL (8.8-10.2); CHLORIDE 109 mmol/L (98-107); COSMO 284; CREATININE 0.5 mg/dL (0.5-0.9); ESTIMATED GFR > 60; GLUCOSE 98 mg/dL (70-104); GOT 14 U/L (10-30); GPT 12 U/L (10-36); MAGNESIUM 1.8 mg/dL (1.5-2.7); POTASSIUM 3.5 mmol/L (3.5-5.1); SODIUM 143 mmol/L (136-145); TCO2 23 mmol/L (25-35); TOTAL BILIRUBIN 0.29 mg/dL (0.20-1.00); TOTAL PROTEIN 6.1 g/dL (6.3-8.3)
[2018-12-03] MEDS: SYMBICORT 80/4.5 MICROGM INHALER INH SCH (08:31)
[2018-12-03] MEDS ORDERED: COZAAR PO SCH (09:00)
[2018-12-03] MEDS ORDERED: VITAMIN D PO SCH (09:00)
[2018-12-03] MEDS ORDERED: ISOPTIN SR PO SCH (09:00)
[2018-12-03] MEDS ORDERED: PRILOSEC PO SCH (09:00)
[2018-12-03] MEDS ORDERED: ASPIRIN EC PO SCH (09:00)
--- NOTE | 2018-12-03 10:16 | GASTROENTEROLOGY CONSULTATION ---
DATE: 12/03/2018 REASON FOR CONSULTATION: Left lower quadrant abdominal pain, chills, diverticulitis versus colitis on CT. HISTORY OF PRESENT ILLNESS: Ms Harper Ashton is a 73-year-old woman with past medical history of hypertension, hyperlipidemia, GERD, COPD, asthma, hemorrhoids, IBS with diarrhea, history of diverticulitis who presents with 3 days of suprapubic and left lower quadrant pain. The patient reports that the pain started acutely, which she described as sharp, lasting for hours. She took some supplemental fiber as well as [id number] laxative that did not help her symptoms. She reports also having associated chills without nausea, vomiting, or fevers. Her current episode is similar to a bout of diverticulitis that she had years ago. She denies having any rectal bleeding or diarrhea at this time. She does have intermittent bleeding from hemorrhoids from time to time. Her weight is stable. She does take aspirin daily as well as ibuprofen for joint pains. Her last colonoscopy in 2007 showed diverticulosis. No family history of GI malignancy. Of note she has an extensive history of endometriosis in the past requiring partial small bowel resection, appendectomy, and ultimately hysterectomy in 1994. REVIEW OF SYSTEMS: As per HPI, otherwise 12 point review of systems is negative. She does report joint pains and intermittent shortness of breath related to her emphysema. PAST MEDICAL HISTORY: Irritable bowel syndrome with diarrhea, hemorrhoids, osteoarthritis, fibromyalgia, diverticulosis, hypertension, hyperlipidemia, GERD, asthma, COPD. PAST SURGICAL HISTORY: Her abdominal include multiple procedures for endometriosis, hysterectomy, partial small bowel resection, appendectomy. She reports that her endometriosis involved her bladder wall that required intervention. MEDICATIONS: Include Prilosec, calcium, vitamin D, losartan, verapamil, ibuprofen, aspirin Singulair, Symbicort, Pro air. Lyrica, pravastatin. ALLERGIES: No known drug allergies. FAMILY HISTORY: No family history of GI malignancies. SOCIAL HISTORY: She is a never smoker. No alcohol or drug use. PHYSICAL EXAMINATION: Vital Signs: Temperature 98.4, heart rate of 63, respiratory rate 18, blood pressure 108/44, O2 saturation 96% on room air. General: Patient is awake, alert, oriented, in no acute distress. HEENT: Sclerae anicteric. Moist mucous membranes. Extraocular motor intact. Neck: Supple. No JVD or lymphadenopathy. Cardiac: Regular rate and rhythm. No murmurs, rubs, or gallops. Lungs: Clear to auscultation bilaterally. She does have some mild nonproductive cough when asked to take deep breaths. No wheezing. Abdomen: Soft, nontender, nondistended. Normoactive bowel sounds. No rebound or guarding. Extremities: No clubbing, cyanosis, or edema. Neurologic: Nonfocal. LABS: White count of 7.0 from 11.0 on admission, hemoglobin of 12.2, platelets of 212,000, ESR 42. CMP notable for bicarb 23, albumin 3.4. CRP of 51, lipase of 32. TSH within normal limits. UA with ketones. Blood cultures x2 are pending IMAGING: Chest x-ray shows no acute abnormalities. CT of the abdomen and pelvis with IV contrast only shows focal colitis or diverticulitis in the transverse colon. No bowel obstruction. Stable prominent gastrohepatic ligament lymph nodes. Severe degenerative disease throughout the spine. ASSESSMENT AND PLAN: Ms Edwige Ashton is a 73-year-old woman with past medical history of irritable bowel syndrome with diarrhea, remote history of diverticulitis, Gastroesophageal reflux disease who presents with 3 days of suprapubic and left lower quadrant pain, found to have leukocytosis and possible diverticulitis on CT. Her leukocytosis has resolved. Her abdominal pain has improved with supportive care and antibiotics. She is currently on Flagyl and Levaquin. She did have some nausea vomiting over night, which she attributes to receiving morphine for her pain. This is resolved. She is tolerating a full liquid diet this morning. Her abdomen is benign currently. Her last colonoscopy was over 10 years ago. I recommend that she continue a 10 day course of antibiotics, which can be transitioned to oral therapy with follow up [facility] for outpatient diagnostic colonoscopy in approximately 6 weeks. Recommend advancing her diet as tolerated. Her irritable bowel syndrome seems to be controlled without need for medications. Her gastroesophageal reflux disease is controlled with Prilosec. # Diverticulitis # N/V # Leukocytosis # GERD # IBS-D Thank you for this consult. Please call with any questions or concerns. Plan was discussed with Dr. Jensen. [facility]
[2018-12-03 11:49] VITALS: BP 121/53
[2018-12-03] MEDS ORDERED: LEVAQUIN 500 MG/D5W 500 MG/100 ML IVPB IV SCH (20:00)
--- NOTE | 2018-12-04 00:28 | DISCHARGE SUMMARY ---
ADMISSION DATE: 12/02/2018 DISCHARGE DATE: 12/03/2018 DISPOSITION: Home. FOLLOW-UP: 1. Dr. Becerra. 2. Dr. Dick. CONSULTATION DURING THIS ADMISSION: Gastroenterology was consulted, patient was seen by Dr. Parker. INVESTIGATIVE PROCEDURE DONE DURING ADMISSION: None. IMAGING STUDIES OF SIGNIFICANCE: 1. A chest x-ray was initially done, which showed no acute abnormality. 2. A CT scan of the abdomen and pelvis showed a focal colitis or diverticulitis at the transverse colon, there is also severe degeneration throughout the spine. No acute bony lesions. ADMISSION DIAGNOSES: 1. Focal colitis versus diverticulitis. 2. History of fibromyalgia. 3. Hypertension. 4. Hypokalemia. 5. Clinical volume depletion. DISCHARGE DIAGNOSES: 1. Abdominal pain on presentation secondary to focal colitis versus diverticulitis, resolved overnight. 2. Oral intolerance, improved. 3. Hypertension. 4. Mild clinical volume depletion, improved. 5. History of irritable bowel syndrome. 6. Hypertension. DISCHARGE MEDICATIONS: 1. Aspirin 325 p.o. daily. 2. Losartan 100 mg p.o. daily. 3. Verapamil 240 p.o. daily. 4. Montelukast. 5. Gabapentin 150 p.o. at bedtime. 6. Albuterol inhalers and Symbicort inhaler, use as directed. 7. Omeprazole 20 mg p.o. daily. 8. Cholecalciferol 3000 units p.o. daily. 9. Pravastatin 40 mg p.o. daily. 10. Metronidazole 250 p.o. at bedtime. 11. Levofloxacin 500 p.o. daily. 12. Linzess 145 mcg p.o. daily. PRESENTING COMPLAINT: Abdominal pain and chills. HISTORY OF PRESENTING COMPLAINT: Ms. Ashton is a 73-year-old female with multiple comorbidities, including hypertension, asthma, diverticulosis, fibromyalgia, and irritable bowel syndrome, came to the emergency department because of abdominal pain, chills. Patient was evaluated and a CT scan did reveal focal colitis versus diverticulitis. Because patient was p.o. intolerant, she was admitted for inpatient care. HOSPITAL COURSE: Ms. Ashton was admitted to the medical floor, was adequately fluid resuscitated, started on IV antimicrobial therapy, and GI was consulted. Over the course of the hospital stay, she improved. Nausea and vomiting all got resolved, abdominal pain improved. Medications were switched to by mouth and her home medications were all restarted. She did tolerate her diet. We think she is fairly stable for discharge. She is going to continue with p.o. antimicrobial therapy for a total of 10 days, and she will follow up with Dr. Parker/Dr. Dick for outpatient evaluation for possible colonoscopy at a later day, when the presumed inflammation is al controlled. This morning, Ms. Ashton's vitals: Blood pressure is 121/53, pulse of 70, respirations 22, temperature 97.8 degrees. The patient was saturating 95%. Physical exam is completely unrevealing, so we think she is stable for discharge. All the discharge instructions have been discussed with her. Her partner was at the bedside at the time of the encounter. TIME SPENT: For discharge is 36 minutes. cc: MD Agustin Mccormick MD Michael Kelso, MD
== END 2018-12-03 14:09 | disposition home or self-care (01) | DRG 372 ==
LOC: ED 14:50 → 3N 20:30
PROVIDERS: ATTEND Internal Medicine